=== PATIENT | male | born 1950 | race Caucasian/White ===

== ENCOUNTER 2016-06-04 20:30 | Emergency (ER) | payer OTHER ==
--- NOTE | 2016-06-04 23:42 | DIAGNOSTIC IMAGING REPORT ---
PROCEDURE: US ABDOMEN ULTRASOUND-LIMITED INDICATION: EPIGASTRIC ABDO PAIN, initial encounter TECHNIQUE: Morales scale and color Doppler sonographic images of the abdomen were obtained. COMPARISON: None. FINDINGS: Study limited by patient's body habitus. Liver measures 17 cm with diffuse increased echogenicity. Left lobe of the liver not well visualized. Pancreas normal as visualized. Normal gallbladder and CBD (3.7 mm). IVC is patent. Normal hepatopetal flow. Normal right kidney measures 11.1 cm. IMPRESSION: 1. Hepatic steatosis versus intrinsic liver disease
--- NOTE | 2016-06-05 00:13 | DIAGNOSTIC IMAGING REPORT ---
PROCEDURE: CT ABD/PELVIS WITH CONTRAST CLINICAL INDICATION: Upper abdominal pain, initial encounter. TECHNIQUE: 125 ml of Isovue 300 were injected intravenously and axial images were obtained of the entire abdomen and pelvis with sagittal and coronal reformations. COMPARISON: Abdominal ultrasound 06/04/2016. FINDINGS: ABDOMEN: Small lingular infiltrate suggestive of pneumonia. Mild right basilar dependent atelectasis. Borderline cardiomegaly. 1.5 cm left hepatic lobe cyst. Prominent gallbladder but no evidence of gallstones. Pancreas, spleen, adrenal glands and right kidney are normal. 1.8 cm left renal cyst. Minor atherosclerosis. Mild descending colon diverticulosis. Nonspecific bowel gas pattern. PELVIS: Normal appendix. Mild sigmoid diverticulosis. Enlarged prostate (5.2 cm). Normal bladder. No pelvic mass, inflammatory changes or free fluid. Moderate degenerative changes of the spine. IMPRESSION: 1. Small lingular infiltrate suggestive of pneumonia 2. Hepatic cyst 3. Prominent gallbladder but no evidence of gallstones, inflammatory changes or biliary obstruction 4. Diverticulosis 5. Results discussed with Dr. Small All CT scans at this facility use dose modulation, iterative reconstruction, and/or weight-based dosing when appropriate to reduce radiation dose to as low as reasonably achievable.
--- NOTE | 2016-06-05 00:53 | ED CLINICAL REPORT ---
Clinical Report - Physicians/Mid Levels [facility] [address] [place] [address] 06/04/2016 20:32 Patient: ANANTH CARLIN Time Seen: 2100; initial patient contact. Arrived- By private vehicle. Historian- patient. HISTORY OF PRESENT ILLNESS Chief Complaint: points to epigstric area and states he has chest pain. This started today and is still present. It was abrupt in onset and has been constant but is not gone now. At its maximum, severity described as moderate. When seen in the E.D., severity described as moderate. Modifying factors- (but possibly worsens with food). Not worsened by anything. Not relieved by anything. It is described as "pain" and it is described as located in the epigastric area and radiating (back). The patient has had nausea. No loss of appetite, vomiting or diarrhea. No recent travel. Similar symptoms previously: None. Recent medical care: Not recently seen/assessed. REVIEW OF SYSTEMS No constipation, black stools, hematemesis, bloody stools or skin rash. All systems otherwise negative, except as recorded above. PAST HISTORY See nurses notes. SOCIAL HISTORY Never smoker. No alcohol use or drug use. No recent travel. Is a local resident. FAMILY HISTORY Negative. (no early family history of heart disease). ADDITIONAL NOTES The nursing notes have been reviewed. PHYSICAL EXAM Vital Signs: 06/04/2016 20:34 BP: 155/90. HR: 63. RR: 20. O2 saturation: 98%. Pain level now: 8/10. Oxygen saturation normal. Appearance: Alert. Oriented X3. No acute distress. Eyes: Pupils equal, round and reactive to light. Eyes normal inspection. No scleral icterus. ENT: Ears normal. Nose normal. Pharynx normal. Neck: Normal inspection. Neck supple. No JVD. CVS: Normal heart rate and rhythm. Heart sounds normal. Pulses normal. Respiratory: No respiratory distress. Breath sounds normal. Chest nontender. No rales, rhonchi or wheezes. Abdomen: Soft. Mild tenderness in the epigastric area. No guarding, rebound tenderness or Mendoza's, obturator or psoas sign present. Bowel sounds normal. No organomegaly. No mass. Back: Normal inspection. No CVA tenderness. Skin: Skin warm and dry. Normal skin color. No rash. Normal skin turgor. Extremities: Extremities exhibit normal ROM. No lower extremity edema. LABS, X-RAYS, AND EKG EKG: No acute ischemia. Normal EKG. Normal sinus rhythm. Normal P waves. Normal LORETA. Normal QRS complex. Normal axis. Normal ST and T waves, QT and QTc. Abdominal CT: PROCEDURE: CT ABD/PELVIS WITH CONTRAST CLINICAL INDICATION: Upper abdominal pain, initial encounter. TECHNIQUE: 125 ml of Isovue 300 were injected intravenously and axial images were obtained of the entire abdomen and pelvis with sagittal and coronal reformations. COMPARISON: Abdominal ultrasound 06/04/2016. FINDINGS: ABDOMEN: Small lingular infiltrate suggestive of pneumonia. Mild right basilar dependent atelectasis. Borderline cardiomegaly. 1.5 cm left hepatic lobe cyst. Prominent gallbladder but no evidence of gallstones. Pancreas, spleen, adrenal glands and right kidney are normal. 1.8 cm left renal cyst. Minor atherosclerosis. Mild descending colon diverticulosis. Nonspecific bowel gas pattern. PELVIS: Normal appendix. Mild sigmoid diverticulosis. Enlarged prostate (5.2 cm). Normal bladder. No pelvic mass, inflammatory changes or free fluid. Moderate degenerative changes of the spine. IMPRESSION: 1. Small lingular infiltrate suggestive of pneumonia 2. Hepatic cyst 3. Prominent gallbladder but no evidence of gallstones, inflammatory changes or biliary obstruction 4. Diverticulosis. Study type: abdomen and pelvis. Abdominal CT performed with IV contrast. The study was independently viewed by me and interpreted by the radiologist. The study was discussed with the radiologist (via pacs and phone). Abdominal Sonogram: (PROCEDURE: US ABDOMEN ULTRASOUND-LIMITED INDICATION: EPIGASTRIC ABDO PAIN, initial encounter TECHNIQUE: Morales scale and color Doppler sonographic images of the abdomen were obtained. COMPARISON: None. FINDINGS: Study limited by patient's body habitus. Liver measures 17 cm with diffuse increased echogenicity. Left lobe of the liver not well visualized. Pancreas normal as visualized. Normal gallbladder and CBD (3.7 mm). IVC is patent. Normal hepatopetal flow. Normal right kidney measures 11.1 cm. IMPRESSION: 1. Hepatic steatosis versus intrinsic liver disease). The study was independently viewed by me and interpreted by the radiologist. The study was discussed with the radiologist (via pacs and phone). Laboratory Tests: UA-Culture if indicated: (DELIA: 06/05/2016 00:01) ( MsgRcvd 06/05/2016 00:31) Final results Test Result Flag Units (Reference) URINE COLOR YELLOW URINE APPEARANCE CLEAR URINE GLUCOSE NEGATIVE (NEGATIVE) URINE BILIRUBIN NEGATIVE (NEGATIVE) URINE KETONE NEGATIVE (NEGATIVE) URINE SPECIFIC GRAVITY 1.015 (1.010-1.030) URINE PH 6.0 (5.0-8.0) URINE PROTEIN NEGATIVE (NEGATIVE) URINE UROBILINOGEN 0.2 EU/dL (0.2-1.0) URINE NITRITE NEGATIVE (NEGATIVE) URINE BLOOD 1+ (NEGATIVE) URINE LEUK ESTERASE NEGATIVE (NEGATIVE) URINE RBC 1-3 rbc/hpf (0-1) URINE WBC RARE wbc/hpf (0-1) URINE EPITHELIAL CELLS NONE SEEN EPI/hpf (0-5) URINE BACTERIA NONE SEEN (NONE SEEN) URINE COMMENT CULT NOT INDICATED URINE CULTURES ARE SET-UP BASED ON THE FOLLOWING CRITERIA:POSITIVE NITRITEPOSITIVE LEUKOCYTE ESTERASEGREATER THAN 10 WHITE BLOOD CELLSMODERATE (2+) OR GREATER BACTERIA CBC w Diff: (DELIA: 06/04/2016 20:40) ( MsgRcvd 06/04/2016 21:12) Final results Test Result Flag Units (Reference) WHITE BLOOD COUNT 7.7 K/uL (4.5-11.5) RED BLOOD COUNT 4.98 M/uL (4.50-5.90) HEMOGLOBIN 15.9 gm/dL (13.5-17.5) HEMATOCRIT 46.4 % (41.0-53.0) MEAN CELL VOLUME 93 fL (80-100) MEAN CORPUSCULAR HGB 32 pg (26-34) MEAN CORPUSCULAR HGB CONC 34 g/dL (31-37) RED CELL DISTRIBUTION WIDTH 13.5 % (11.6-14.8) PLATELET COUNT 243 K/uL (150-400) NEUTROPHIL % 64.5 % (50-75) LYMPH % 24.8 L % (25-40) MONO % 8.3 % (3-14) EOSINOPHIL % 1.6 % (0-4) BASOPHIL % 0.8 % (0-2) Troponin-I: (DELIA: 06/04/2016 23:23) ( MsgRcvd 06/04/2016 23:56) Final results Test Result Flag Units (Reference) TROPONIN I <0.05 ng/mL (0.00-1.5) TROPONIN REFERENCE RANGE:<0.1 NEGATIVE0.1-1.5 INDETERMINANT>1.5 POSITIVE CHEM 13 PANEL: (DELIA: 06/04/2016 20:40) ( MsgRcvd 06/04/2016 21:14) Final results Test Result Flag Units (Reference) GLUCOSE 107 mg/dL (70-110) BUN 20 H mg/dL (7-18) CREATININE 1.1 mg/dL (0.6-1.3) Estimated GFR >60 mL/min Estimated GFR- >60 mL/min Note: Persistent reduction over 3 months in eGFR<60 mL/min/1.73 m2 defines CKD. Patients with eGFR values>=60 mL/min/1.73 m2 may also have CKD if evidence ofpersistent proteinuria. Additional information may be foundat www.kidney.org. SODIUM 143 mmol/L (136-145) POTASSIUM 3.5 mmol/L (3.5-5.1) CHLORIDE 104 mmol/L (98-107) CARBON DIOXIDE 28 mmol/L (21-32) CALCIUM 9.1 mg/dL (8.5-10.1) TOTAL PROTEIN 8.1 g/dL (6.4-8.2) ALBUMIN 4.3 g/dL (3.3-5.0) BILIRUBIN, TOTAL 0.5 mg/dL (0.0-1.0) ALKALINE PHOSPHATASE 93 U/L (46-116) AST (SGOT) 16 U/L (15-37) ALT (SGPT) 32 U/L (12-78) CPK 96 U/L (24-260) MAGNESIUM 2.3 mg/dL (1.8-2.4) LIPASE 178 U/L (73-393) AMYLASE 58 U/L (25-115) TROPONIN I <0.05 ng/mL (0.00-1.5) TROPONIN REFERENCE RANGE:<0.1 NEGATIVE0.1-1.5 INDETERMINANT>1.5 POSITIVE . PROGRESS AND PROCEDURES Course of Care: the patient is a pleasant 65-year-old male presenting for evaluation of epigastric abdominal pain. When asked where the patient's pain is, patient points to the epigastric area but states that he has chest pain. Patient is also tender in the epigastric region with palpation. We'll clinical suspicion for cardiac etiology of the patient's symptoms here today. Patient will be however evaluated for atypical presentation of acute myocardial infarction. EKG is been ordered. It has been reviewed by me. No acute findings noted. Patient is agreeable to treatment plan. Medications for nausea and pain at been ordered. Patient appears nontoxic and is in no acute distress. Vital signs are noted to be unremarkable. Initial troponin is noted to be negative. Patient will require 2 troponins as the patient had onset of symptomsless than 8 hours prior to arrival in the emergency department. Patient continues to be nontoxic and in no acute distress. Patient's pain is improved while here in the emergency department. Patient's ultrasound is noted to be negative. No acute findings noted. Patient reports still having pain. Because the patient's symptoms and radiation of his pain to the back, would be concern foraortic aneurysm. Patient is agreeable to treatment plan. We'll evaluate patient is CT scan of the abdomen with contrast. Patient's CT scan does not show any acute Abnormalities either. While patient has been here his pain is significantly improved. Had long discussion with patient in regards to chest pain and abdominal pain as well as causes for these things. Do not feel patient needs be admitted to the hospital given the second troponin is also noted to be negative and lack of findings on his workup here in the emergency department today. Patient has negative CT scan, ultrasound, and laboratory studies including urinalysis. Patient is resting in bed and in no acute distress and nontoxic. Discussed with patient his workup, diagnosis, home care, follow-up, and return precautions. All questions have been answered. The patient expressed understanding of these instructions and was agreeable to them. Disposition: Discharged. Condition: good. CLINICAL IMPRESSION Acute epigastric abdominal pain. 06/05/2016 00:46 BP: 134/75. HR: 60. RR: 20. O2 saturation: 96%. Pain level now: 5/10. Blood pressure normal. Oxygen saturation normal. Bacterial pneumonia. Empiric antibiotics given in the ED. (acute lingular). INSTRUCTIONS Warnings: GENERAL WARNINGS: Return or contact your physician immediately if your condition worsens or changes unexpectedly, if not improving as expected, or if other problems arise. SPECIFICALLY, return if you develop pain, fever, vomiting, the inability to keep fluids down, blood in vomitus, blood in diarrhea, fainting or lightheadedness. Prescription Medications: Zithromax Z-Ovidio: Take according to package instructions. No refills. Substitution is permissible. Phenergan 25 mg tablets: every 8 hours as needed for nausea or vomiting. Dispense twenty (20). No refill. Substitution is permissible Percocet 5 mg/325 mg: take 1 tablet orally every 6 hours as needed for pain. Dispense twelve (12). No refill. Substitution is permissible. Follow-up: Return to the emergency department as needed. Follow up with your doctor in three days. Reason for referral: recheck today's concerns. Summary of care provided to patient via paper. Screening today revealed the patient's blood pressure to be in the normal range. The patient should follow up with a primary care provider for blood pressure management. Understanding of the discharge instructions verbalized by patient. Discharge instructions reviewed (). (Electronically signed by Gopi Small Dr. 06/08/2016 10:24)
--- NOTE | 2016-06-05 00:53 | ED ORDER SUMMARY ---
..... Patient: AANNTH CARLIN OrderSheet [facility] VisitID: [id number] [place] [address] 65y, M Registration Date/Time: 06/04/2016 ORDER SHEET Weight: 102.0 kg (stated) Allergies: Cipro GENERAL ORDERS: Promotions Executive Producer (Continuous) (chest pain ) (20:41 06/04/2016 HSoule per protocol) (20:42 HSoule) Cardiac Panel Stat (20:42 06/04/2016 HSoule per protocol) (Ack 20:42 HSoule) (21:00 TLewis R.N.) Amylase Urgent (20:42 06/04/2016 HSoule per protocol) (Ack 20:42 HSoule) (21:00 TLewis R.N.) (Cancelled: Duplicate Order21:08 Ronny Navas) Lipase Urgent (20:42 06/04/2016 HSoule per protocol) (Ack 20:42 HSoule) (21:00 TLewis R.N.) CBC w Diff Urgent (20:42 06/04/2016 HSoule per protocol) (Ack 20:42 HSoule) (20:42 HSoule) (Cancelled: Duplicate Order21:08 Ronny Navas) CMP Urgent (20:42 06/04/2016 HSoule per protocol) (Ack 20:42 HSoule) (21:00 TLewis R.N.) (Cancelled: Duplicate Order21:Jace [address] EKG - ER Stat (20:42 06/04/2016 HSoule per protocol) (20:42 HSoule) Oxygen (2 L/min) (NC) (20:42 06/04/2016 HSoule per protocol) (20:42 HSoule) Pulse oximeter (20:42 06/04/2016 HSoule per protocol) (20:42 HSoule) US Abdomen Limited (No) Urgent (21:18 06/04/2016 Ronny Navas) (Ack 21:20 ALawrence ER Tech1) (23:18 TLewis R.N.) CT Abd/Pel w Cont (No) (N/A) Urgent (22:49 06/04/2016 Ronny Navas) (Ack 22:57 ALawrence ER Tech1) (23:18 TLewis R.N.) Troponin-I Urgent (23:08 06/04/2016 Ronny Navas) (Ack 23:12 ALawrence ER Tech1) (23:18 TLewis R.N.) UA-Culture if indicated Urgent (00:13 06/05/2016 Ronny Navas) (Ack 0:13 HSoule) (0:33 ALawrence ER Tech1) MEDICATION ORDERS: Phenergan IV 25 mg (HIGH ALERT MEDICATION, NOW) (21:09 06/04/2016 Ronny Navas) (Ack 21:10 HSoule) (21:28 HSoule) IV FLUIDS: IV Saline Lock (20:42 06/04/2016 HSoule per protocol) (Ack 21:10 HSoule) Zofran IV 4 mg (NOW) (20:42 06/04/2016 HSoule per protocol) (Ack 20:43 HSoule) (20:45 HSoule) Morphine IV 4 mg (HIGH ALERT MEDICATION, NOW) (21:19 06/04/2016 Ronny Navas) (Ack 21:24 SRedmond) (21:28 HSoule) Dilaudid IV 1 mg (once now. repeat in 15 minutes for pain > 5/10) (21:53 06/04/2016 Ronny Navas) (21:55 HSoule) ORDER SHEET NOTES: [Electronically signed by Saba Carreno (05:55 06/05/2016)] [Electronically signed by Gopi Small Dr. (10:24 06/08/2016)] [Electronically locked/signed by Saba Carreno (05:55 06/05/2016)]
--- NOTE | 2016-06-05 00:53 | ED ORDER SUMMARY ---
..... Patient: ANANTH CARLIN OrderSheet [facility] VisitID: [id number] [place] [address] 65y, M Registration Date/Time: 06/04/2016 ORDER SHEET Weight: 102.0 kg (stated) Allergies: Cipro GENERAL ORDERS: Pig Sticker (Continuous) (chest pain ) (20:41 06/04/2016 HSoule per protocol) (20:42 HSoule) Cardiac Panel Stat (20:42 06/04/2016 HSoule per protocol) (Ack 20:42 HSoule) (21:00 TLewis R.N.) Amylase Urgent (20:42 06/04/2016 HSoule per protocol) (Ack 20:42 HSoule) (21:00 TLewis R.N.) (Cancelled: Duplicate Order21:08 Ronny Navas) Lipase Urgent (20:42 06/04/2016 HSoule per protocol) (Ack 20:42 HSoule) (21:00 TLewis R.N.) CBC w Diff Urgent (20:42 06/04/2016 HSoule per protocol) (Ack 20:42 HSoule) (20:42 HSoule) (Cancelled: Duplicate Order21:08 Ronny Navas) CMP Urgent (20:42 06/04/2016 HSoule per protocol) (Ack 20:42 HSoule) (21:00 TLewis R.N.) (Cancelled: Duplicate Order21:Jace [address] Dr[address] EKG - ER Stat (20:42 06/04/2016 HSoule per protocol) (20:42 HSoule) Oxygen (2 L/min) (NC) (20:42 06/04/2016 HSoule per protocol) (20:42 HSoule) Pulse oximeter (20:42 06/04/2016 HSoule per protocol) (20:42 HSoule) US Abdomen Limited (No) Urgent (21:18 06/04/2016 Ronny Navas) (Ack 21:20 ALawrence ER Tech1) (23:18 TLewis R.N.) CT Abd/Pel w Cont (No) (N/A) Urgent (22:49 06/04/2016 Ronny Navas) (Ack 22:57 ALawrence ER Tech1) (23:18 TLewis R.N.) Troponin-I Urgent (23:08 06/04/2016 Ronny Navas) (Ack 23:12 ALawrence ER Tech1) (23:18 TLewis R.N.) UA-Culture if indicated Urgent (00:13 06/05/2016 Ronny Navas) (Ack 0:13 HSoule) (0:33 ALawrence ER Tech1) MEDICATION ORDERS: Phenergan IV 25 mg (HIGH ALERT MEDICATION, NOW) (21:09 06/04/2016 Ronny Navas) (Ack 21:10 HSoule) (21:28 HSoule) IV FLUIDS: IV Saline Lock (20:42 06/04/2016 HSoule per protocol) (Ack 21:10 HSoule) Zofran IV 4 mg (NOW) (20:42 06/04/2016 HSoule per protocol) (Ack 20:43 HSoule) (20:45 HSoule) Morphine IV 4 mg (HIGH ALERT MEDICATION, NOW) (21:19 06/04/2016 Ronny Navas) (Ack 21:24 SRedmond) (21:28 HSoule) Dilaudid IV 1 mg (once now. repeat in 15 minutes for pain > 5/10) (21:53 06/04/2016 Ronny Navas) (21:55 HSoule) ORDER SHEET NOTES: [Electronically signed by Saba Carreno (05:55 06/05/2016)] [Electronically signed by Gopi Small Dr. (10:24 06/08/2016)] [Electronically locked/signed by Saba Carreno (05:55 06/05/2016)]
--- NOTE | 2016-06-05 00:53 | ED NURSING NOTES ---
Clinical Report - Nurses [facility] [address] [place] [address] 06/04/2016 20:32 [id number] TRI[facility] Triage time 20:34 Jun 04 2016. Acuity: LEVEL 3. Chief Complaint: CHEST PAIN and UPPER ABDOMINAL PAIN. 20:37 06/04/16. SEPSIS SCREEN: Sepsis Screen: negative. Negative (no infection suspected/documented). JOY COMA SCORE: [place] Coma Scale: 15- eyes open spontaneously (4); best verbal response- oriented x 4 (5); best motor response- obeys commands (6). --20:37 Saba Carreno 20:34 06/04/16. BP: 155/90. HR: 63. RR: 20. O2 saturation: 98%. Pain level now: 8/10. --20:37 Saba Carreno. Weight: 102 kg stated. Height/Length: 71 inches Per Patient. BMI: 31.4. --20:37 Saba Carreno. Medications Diltiazem HCl Oral. --20:35 Saba Carreno Levothyroxine Sodium Oral. --20:35 Saba Carreno HCTZ. --20:35 Saba Carreno Flecainide Acetate Oral. --20:35 Sbaa Carreno Eliquis Oral. --20:41 Saba Carreno. Medication/allergy information source: the patient. --20:37 Saba Carreno. Allergies Cipro. --20:36 Saba Carreno. History Arrived by private vehicle. Historian: patient. Accompanied by family. Primary physician (kyler montemayor , architectural wood model maker dr delgado at [facility]). ( Patient reports chest and abdominal pain that started about 3 pm. He is vomiting. He reports some shortness of breath.). PAST MEDICAL HX: Immunizations: up-to-date. SOCIAL HX: Never smoker. No alcohol use or drug use. No infectious disease exposure. ABUSE ASSESSMENT: No report of abuse. FALL RISK ASSESSMENT: Fall risk assessment completed. No fall risk identified. NUTRITIONAL RISK ASSESSMENT: The nutritional risk assessment revealed no deficiencies. FUNCTIONAL ASSESSMENT: Functional assessment: no impairments noted. LEARNING NEEDS ASSESSMENT: The learning needs assessment revealed no barriers. SKIN INTEGRITY ASSESSMENT: Skin integrity risk assessment completed. No skin integrity risk identified. --20:37 Saba Carreno. PROBLEMS: Atrial Fibrillation. Corneal Foreign Body. Corneal Abrasion. Immunizations. Thyroid Disease. --20:36 Saba Carreno. ADDITIONAL SURGERIES: Elbow. Hernia Repair. Knee Surgery. Shoulder Surgery. Sinus Surgery. Vasectomy. --20:36 Saba Carreno. Interventions ID band on patient. To treatment room. --20:37 Saba Carreno. PHYSICAL ASSESSMENT Ambulatory to room. Patient gowned. GENERAL / NEURO / PSYCH: Alert. Oriented X 4. Appears in pain and in distress. HEENT: Mucous membranes are pink. RESPIRATORY: Respirations not labored. CVS: Pulses within normal limits. GI / : Abdomen soft. Abdominal tenderness in the epigastric area and left upper quadrant. EXTREMITIES: No lower extremity edema. SKIN: Skin is warm and dry. Skin is non-tender. --20:38 Saba Carreno. NURSING PROGRESS NOTES Oxygen administered by nasal cannula at 2 liters. quality assurance monitor, pulse oximeter and NIBP monitor placed on patient; monitor alarms on. Patient gowned. Reassurance given to the patient. Two patient identifiers checked. Call light placed in reach. Side rails up x 1. Bed placed in lowest position. Brakes of bed on. Patient ready for evaluation- chart flagged. --20:39 Saba Carreno 20:39 06/04/2016 Site #1 started via IV in the right hand with an 20g angiocath, with aseptic technique and good blood return; one attempt. Blood drawn: rainbow set. Labeled in the presence of the patient and sent to the lab. Saline lock flushed with 10 mL saline. --20:39 Saba Carreno EKG time: (20:45 Jun 04 2016). EKG was performed by a tech and shown to the ED physician. --20:45 Saba Carreno 20:45 06/04/2016 Zofran (Ondansetron HCl) IVP 4 mg given over 1 minute(s) via site #1. Allergies verified and confirmed 5 rights. IV patency established. IV site checked: no pain, redness, or swelling. IV flushed thoroughly pre- and post-medication administration. IVP given by RN. --20:45 Saba Carreno 21:28 06/04/2016 PHENERGAN (Promethazine HCl) IVP 25 mg given diluted in NS 20mL over 2 minute(s) via site #1. Allergies verified and confirmed 5 rights. IV patency established. IV site checked: no pain, redness, or swelling. IV flushed thoroughly pre- and post-medication administration. IVP given by RN. --21:28 Saba Carreno 21:28 06/04/2016 Morphine IVP 4 mg given over 1 minute(s) via site #1. Allergies verified, confirmed 5 rights and sedative warning given to the patient and patient's family. IV patency established. IV site checked: no pain, redness, or swelling. IV flushed thoroughly pre- and post-medication administration. IVP given by RN. --21:28 Saba Carreno 21:47 06/04/16. BP: 133/57. HR: 66. RR: 17. O2 saturation: 96% on room air. Pain level now: 10/29. --21:47 Saba Carreno 21:55 06/04/2016 Dilaudid (HYDROmorphone HCl PF) IVP 1 mg given over 1 minute(s) via site #1. Allergies verified, confirmed 5 rights and sedative warning given to the patient and patient's family. IV patency established. IV site checked: no pain, redness, or swelling. IV flushed thoroughly pre- and post-medication administration. IVP given by RN. --21:55 Saba Carreno ( Patient vomiting and still in pain, provider notified. See CPOE for new orders). --21:56 Saba Carreno 21:55 06/04/16. BP: 125/74. HR: 63. RR: 20. O2 saturation: 97% on room air. Pain level now: 10. --21:56 Saba Carreno Reassessment after medication administered. Overall patient status- he states feels the same. --22:16 Saba Carreno ( US at the bedside). --22:25 Brooklyn Sousa R.N. ( Ultrasound at bedside). --22:28 Rome Carrenonah 22:41 06/04/16. BP: 131/85. HR: 58. O2 saturation: 98% on nasal cannula at 2 liters/minute. --22:42 WaiRome khannah Patient ID band checked for patient name and birthdate: patient confirmed. Blood samples drawn by tech ; labeled in presence of the patient and sent to lab: cardiac enzymes (2nd set). --23:25 Rome Carrenonah 00:01 06/05/16. BP: 130/66. HR: 60. RR: 18. O2 saturation: 95% on nasal cannula at 2 liters/minute. Temp: 98 F (oral). Pain level now: 07/29. --00:02 Rome Carrenonah 00:46 06/05/16. BP: 134/75. HR: 60. RR: 20. O2 saturation: 96% on nasal cannula at 2 liters/minute. Pain level now: 07/29. --00:46 Saba Carreno. DISPOSITION / DISCHARGE 01:00 06/05/16. Condition at departure: improved and stable. The goals identified in the patient's plan of care were met. No learning barriers present. Discharge instructions provided and reviewed with the patient and spouse. Reviewed warnings (Do not drive while on sedative medications). Reviewed medication(s) side effects, precautions, dosing and course information. Prescription(s) given to the patient. Reviewed need for increased fluid intake. Patient and spouse verbalized understanding. Written instructions provided in Frisian. ( Increase fluids and fibers to prevent constipation from narcotic pain medications. Follow up with your PCP in three days. Take probiotic while on antibiotic.). The patient was discharged by the physician. He was discharged home and accompanied by spouse. He left the Emergency Department ambulatory and via private vehicle. Spouse driving. FALL RISK ASSESSMENT: Fall risk assessment completed. No fall risk identified. --05:54 Rome Carrenonah 01:00 06/05/16. BP: 134/70. HR: 68. RR: 18. O2 saturation: 97% on room air. Temp: 98 F (oral). Pain level now: 06/29. --05:54 Saba Carreno 01:00 06/05/2016 Site #1 removed upon discharge. Catheter intact. Bandaid applied. --05:54 Saba Carreno. Locked/Released at 06/05/2016 5:55 by Saba Carreno,
--- NOTE | 2016-06-05 00:53 | ED NURSING NOTES ---
Clinical Report - Nurses [facility] [address] [place] [address] 06/04/2016 20:32 [id number] Triage time 20:34 Jun 04 2016. Acuity: LEVEL 3. Chief Complaint: CHEST PAIN and UPPER ABDOMINAL PAIN. 20:37 06/04/16. SEPSIS SCREEN: Sepsis Screen: negative. Negative (no infection suspected/documented). JOY COMA SCORE: [place] Coma Scale: 15- eyes open spontaneously (4); best verbal response- oriented x 4 (5); best motor response- obeys commands (6). --20:37 Saba Carreno 20:34 06/04/16. BP: 155/90. HR: 63. RR: 20. O2 saturation: 98%. Pain level now: 8/10. --20:37 Saba Carreno. Weight: 102 kg stated. Height/Length: 71 inches Per Patient. BMI: 31.4. --20:37 Saba Carreno. Medications Diltiazem HCl Oral. --20:35 Saba Carreno Levothyroxine Sodium Oral. --20:35 Saba Carreno HCTZ. --20:35 Saba Carreno Flecainide Acetate Oral. --20:35 Saba Carreno Eliquis Oral. --20:41 Saba Carreno. Medication/allergy information source: the patient. --20:37 Saba Carreno. Allergies Cipro. --20:36 Saba Carreno. History Arrived by private vehicle. Historian: patient. Accompanied by family. Primary physician (kyler montemayor , hospital manager dr delgado at [facility]). ( Patient reports chest and abdominal pain that started about 3 pm. He is vomiting. He reports some shortness of breath.). PAST MEDICAL HX: Immunizations: up-to-date. SOCIAL HX: Never smoker. No alcohol use or drug use. No infectious disease exposure. ABUSE ASSESSMENT: No report of abuse. FALL RISK ASSESSMENT: Fall risk assessment completed. No fall risk identified. NUTRITIONAL RISK ASSESSMENT: The nutritional risk assessment revealed no deficiencies. FUNCTIONAL ASSESSMENT: Functional assessment: no impairments noted. LEARNING NEEDS ASSESSMENT: The learning needs assessment revealed no barriers. SKIN INTEGRITY ASSESSMENT: Skin integrity risk assessment completed. No skin integrity risk identified. --20:37 Saba Carreno. PROBLEMS: Atrial Fibrillation. Corneal Foreign Body. Corneal Abrasion. Immunizations. Thyroid Disease. --20:36 Saba Carreno. ADDITIONAL SURGERIES: Elbow. Hernia Repair. Knee Surgery. Shoulder Surgery. Sinus Surgery. Vasectomy. --20:36 Saba Carreno. Interventions ID band on patient. To treatment room. --20:37 Saba Carreno. PHYSICAL ASSESSMENT Ambulatory to room. Patient gowned. GENERAL / NEURO / PSYCH: Alert. Oriented X 4. Appears in pain and in distress. HEENT: Mucous membranes are pink. RESPIRATORY: Respirations not labored. CVS: Pulses within normal limits. GI / : Abdomen soft. Abdominal tenderness in the epigastric area and left upper quadrant. EXTREMITIES: No lower extremity edema. SKIN: Skin is warm and dry. Skin is non-tender. --20:38 Saba Carreno. NURSING PROGRESS NOTES Oxygen administered by nasal cannula at 2 liters. nuclear monitoring technician, pulse oximeter and NIBP monitor placed on patient; monitor alarms on. Patient gowned. Reassurance given to the patient. Two patient identifiers checked. Call light placed in reach. Side rails up x 1. Bed placed in lowest position. Brakes of bed on. Patient ready for evaluation- chart flagged. --20:39 Saba Carreno 20:39 06/04/2016 Site #1 started via IV in the right hand with an 20g angiocath, with aseptic technique and good blood return; one attempt. Blood drawn: rainbow set. Labeled in the presence of the patient and sent to the lab. Saline lock flushed with 10 mL saline. --20:39 Saba Carreno EKG time: (20:45 Jun 04 2016). EKG was performed by a tech and shown to the ED physician. --20:45 Saba Carreno 20:45 06/04/2016 Zofran (Ondansetron HCl) IVP 4 mg given over 1 minute(s) via site #1. Allergies verified and confirmed 5 rights. IV patency established. IV site checked: no pain, redness, or swelling. IV flushed thoroughly pre- and post-medication administration. IVP given by RN. --20:45 Saba Carreno 21:28 06/04/2016 PHENERGAN (Promethazine HCl) IVP 25 mg given diluted in NS 20mL over 2 minute(s) via site #1. Allergies verified and confirmed 5 rights. IV patency established. IV site checked: no pain, redness, or swelling. IV flushed thoroughly pre- and post-medication administration. IVP given by RN. --21:28 Saba Carreno 21:28 06/04/2016 Morphine IVP 4 mg given over 1 minute(s) via site #1. Allergies verified, confirmed 5 rights and sedative warning given to the patient and patient's family. IV patency established. IV site checked: no pain, redness, or swelling. IV flushed thoroughly pre- and post-medication administration. IVP given by RN. --21:28 Saba Carreno 21:47 06/04/16. BP: 133/57. HR: 66. RR: 17. O2 saturation: 96% on room air. Pain level now: 10/29. --21:47 Saba Carreno 21:55 06/04/2016 Dilaudid (HYDROmorphone HCl PF) IVP 1 mg given over 1 minute(s) via site #1. Allergies verified, confirmed 5 rights and sedative warning given to the patient and patient's family. IV patency established. IV site checked: no pain, redness, or swelling. IV flushed thoroughly pre- and post-medication administration. IVP given by RN. --21:55 Saba Carreno ( Patient vomiting and still in pain, provider notified. See CPOE for new orders). --21:56 Saba Carreno 21:55 06/04/16. BP: 125/74. HR: 63. RR: 20. O2 saturation: 97% on room air. Pain level now: 10. --21:56 Saba Carreno Reassessment after medication administered. Overall patient status- he states feels the same. --22:16 Saba Carreno ( US at the bedside). --22:25 Brooklyn Sousa R.N. ( Ultrasound at bedside). --22:28 Rome Carrenonah 22:41 06/04/16. BP: 131/85. HR: 58. O2 saturation: 98% on nasal cannula at 2 liters/minute. --22:42 WaiRome khannah Patient ID band checked for patient name and birthdate: patient confirmed. Blood samples drawn by tech ; labeled in presence of the patient and sent to lab: cardiac enzymes (2nd set). --23:25 Rome Carrenonah 00:01 06/05/16. BP: 130/66. HR: 60. RR: 18. O2 saturation: 95% on nasal cannula at 2 liters/minute. Temp: 98 F (oral). Pain level now: 07/29. --00:02 Rome Carrenonah 00:46 06/05/16. BP: 134/75. HR: 60. RR: 20. O2 saturation: 96% on nasal cannula at 2 liters/minute. Pain level now: 07/29. --00:46 Saba Carreno. DISPOSITION / DISCHARGE 01:00 06/05/16. Condition at departure: improved and stable. The goals identified in the patient's plan of care were met. No learning barriers present. Discharge instructions provided and reviewed with the patient and spouse. Reviewed warnings (Do not drive while on sedative medications). Reviewed medication(s) side effects, precautions, dosing and course information. Prescription(s) given to the patient. Reviewed need for increased fluid intake. Patient and spouse verbalized understanding. Written instructions provided in Icelandic. ( Increase fluids and fibers to prevent constipation from narcotic pain medications. Follow up with your PCP in three days. Take probiotic while on antibiotic.). The patient was discharged by the physician. He was discharged home and accompanied by spouse. He left the Emergency Department ambulatory and via private vehicle. Spouse driving. FALL RISK ASSESSMENT: Fall risk assessment completed. No fall risk identified. --05:54 Rome Carrenonah 01:00 06/05/16. BP: 134/70. HR: 68. RR: 18. O2 saturation: 97% on room air. Temp: 98 F (oral). Pain level now: 06/29. --05:54 Saba Carreno 01:00 06/05/2016 Site #1 removed upon discharge. Catheter intact. Bandaid applied. --05:54 Saba Carreno. Locked/Released at 06/05/2016 5:55 by Saba Carreno,
--- NOTE | 2016-06-08 10:24 | ED MAR SUMMARY ---
..... Medication Administration [facility] [address] [place] [address] Patient: ANANTH CARLIN Visit ID: [id number] 65y, M Weight: 102.0 kg Height/Length: 71 in BMI: 31.4 ALLERGIES: Cipro Given 20:45 06/04/2016 Saba Carreno, Medication Administered: ZOFRAN [IVP] (ONDANSETRON HCL), Dose: 4 mg IVP over 1 minute(s), Site: #1 right hand. Medication Ordered: Zofran IV 4 mg (NOW). Given :06/04/2016 Saba Carreno, Medication Administered: PHENERGAN [IVP] (PROMETHAZINE HCL), Dose: 25 mg IVP over 2 minute(s), In: NS 20 mL, Site: #1 right hand. Medication Ordered: Phenergan IV 25 mg (HIGH ALERT MEDICATION, NOW). Given :06/04/2016 Saba Carreno, Medication Administered: MORPHINE [IVP], Dose: 4 mg IVP over 1 minute(s), Site: #1 right hand. Medication Ordered: Morphine IV 4 mg (HIGH ALERT MEDICATION, NOW). Given 21:06/04/2016 Saba Carreno, Medication Administered: DILAUDID [IVP] (HYDROMORPHONE HCL PF), Dose: 1 mg IVP over 1 minute(s), Site: #1 right hand. Medication Ordered: Dilaudid IV 1 mg (once now. repeat in 15 minutes for pain > 5/10).
--- NOTE | 2016-06-08 10:24 | ED DISCHARGE INSTRUCTIONS ---
Patient: ANANTH CARLIN General Instructions VisitID: [id number] [place] [address] 65y, M Registration Date/Time: 06/04/2016 Acute epigastric abdominal pain. 06/05/2016 00:46 BP: 134/75. HR: 60. RR: 20. O2 saturation: 96%. Pain level now: 5/10. Blood pressure normal. Oxygen saturation normal. Bacterial pneumonia. Empiric antibiotics given in the ED. (acute lingular). INSTRUCTIONS Warnings: GENERAL WARNINGS: Return or contact your physician immediately if your condition worsens or changes unexpectedly, if not improving as expected, or if other problems arise. SPECIFICALLY, return if you develop pain, fever, vomiting, the inability to keep fluids down, blood in vomitus, blood in diarrhea, fainting or lightheadedness. Prescription Medications: Zithromax Z-Ovidio: Take according to package instructions. No refills. Substitution is permissible. Phenergan 25 mg tablets: every 8 hours as needed for nausea or vomiting. Dispense twenty (20). No refill. Substitution is permissible Percocet 5 mg/325 mg: take 1 tablet orally every 6 hours as needed for pain. Dispense twelve (12). No refill. Substitution is permissible. Follow-up: Return to the emergency department as needed. Follow up with your doctor in three days. Reason for referral: recheck today's concerns. Summary of care provided to patient via paper. Screening today revealed the patient's blood pressure to be in the normal range. The patient should follow up with a primary care provider for blood pressure management. Understanding of the discharge instructions verbalized by patient. Discharge instructions reviewed (). ADDITIONAL INFORMATION Abdominal Pain,Uncertain Cause [Male] Based on your visit today, the exact cause of your abdominalpain is not clear. Your exam and tests do not indicate a dangerous cause at this time. However, the signs of a serious problem may take more time to appear. Although your evaluation was reassuring today, sometimes early in the course of many conditions, exam and lab tests can appear normal. Therefore, it is important for you to watch for any new symptoms or worsening of your condition. Causes It may not be obvious what caused your symptoms. Pay attention to things that do seem to make your symptoms worse or better and discuss this with your doctor when you follow up. Diagnosis The evaluation of abdominal pain in the emergency department may onlyrequire an exam by the doctor or it may include blood, urine or imaging studies, depending on many factors. Sometimes exams and tests can identify a cause but in many cases, a clear cause is not found. Further testing at follow up visits may help to suggest a clear diagnosis. Home Care Rest as much as possible until your next exam. Try to avoid any medications (unless otherwise directed by your doctor), foods, activities, or other factors that you may have contributed to your symptoms. Try to eat foods that you know that you have tolerated well in the past. Certain diets may be recommended for some conditions that cause abdominal pain. However, since the cause of your symptoms may not be clear, discuss your diet more with your primary care provider or specialist for further recommendations. Eating several small meals per day as opposed to 2 or 3 larger meals may help. Monitor closely for anything that may make your symptoms worse or better. Pay close attention to symptoms below that may indicate worsening of your condition. Follow Up and Precautions See your doctoras instructed or sooneror if your symptoms are not improving.In some cases, you may need more testing. When to Seek Medical Attention Contact your doctor or see medical attention ifany of the following occur: Pain is becoming worse You are unable to take your medications due to excessive vomiting Swelling of the abdomen Fever of 100.4F (38C) or higher, or as directed by your health care provider Blood in vomit or bowel movements (dark red or black color) Jaundice (yellow color of eyes and skin) New onset of weakness, dizziness or fainting New onset of chest, arm, back, neck or jaw pain Pneumonia (Adult) Pneumonia is an infection deep within the lung, in the small air sacs (alveoli). It may be due to a virus or bacteria and is usually treated with an antibiotic. Severe cases require treatment in the hospital. Milder cases can be treated at home. Symptoms usually start to improve during the first2 days of treatment. Home Care: Rest at home for the first 23 days or until you feel stronger. When resuming activity, dont let yourself become overly tired. Avoid exposure to cigarette smoke (yours or others). You may use acetaminophen (Tylenol) or ibuprofen (Motrin, Advil) to control fever or pain, unless another medicine was prescribed. [NOTE: If you have chronic liver or kidney disease or ever had a stomach ulcer or GI bleeding, talk with your doctor before using these medicines.] (Aspirin should never be used in anyone under 18 years of age who is ill with a fever. It may cause severe liver damage.) Your appetite may be poor so a light diet is fine. Keep well hydrated by drinking 68 glasses of fluids per day (water, sport drinks such as Gatorade, sodas without caffeine, juices, tea, soup, etc.). This will help loosen secretions in the lung, making it easier for you to cough up the phlegm (sputum). If you also have heart or kidney disease, check with your doctor before you drink extra amounts of fluids. Finish all antibiotic medicine prescribed, even if you are feeling better after a few days. Follow Up with your doctor in the next 23 days (or as advised) to be sure you are responding properly to the medicine. [NOTE: If you are age 65 or older, or if you have chronic lung disease (asthma, emphysema or COPD), we recommendthe pneumococcal vaccination and a yearlyinfluenzavaccination(flu-shot) every . Ask your doctor about this.] Get Prompt Medical Attention if any of the following occur: Not getting better within the first 48 hours of treatment Increasing shortness of breath or rapid breathing (over 25 breaths/minute) Coughing up blood or increasing chest pain with breathing Fever of 100.4F (38C) oral or higher, not better with fever medication Increasing weakness, dizziness or fainting Increasing thirst or dry mouth Sinus pain, headache or a stiff neck Chest pain not caused by coughing Azithromycin Oral tablet What is this medicine? AZITHROMYCIN (az ith shirley MYE sin) is a macrolide antibiotic. It is used to treat or prevent certain kinds of bacterial infections. It will not work for colds, flu, or other viral infections. How should I use this medicine? Take this medicine by mouth with a full glass of water. Follow the directions on the prescription label. The tablets can be taken with food or on an empty stomach. If the medicine upsets your stomach, take it with food. Take your medicine at regular intervals. Do not take your medicine more often than directed. Take all of your medicine as directed even if you think your are better. Do not skip doses or stop your medicine early. Talk to your dobby looms pegger regarding the use of this medicine in children. Special care may be needed. What side effects may I notice from receiving this medicine? Side effects that you should report to your doctor or health healthcare sales representative as soon as possible: allergic reactions like skin rash, itching or hives, swelling of the face, lips, or tongue confusion, nightmares or hallucinations dark urine difficulty breathing hearing loss irregular heartbeat or chest pain pain or difficulty passing urine redness, blistering, peeling or loosening of the skin, including inside the mouth white patches or sores in the mouth yellowing of the eyes or skin Side effects that usually do not require medical attention (report to your doctor or health healthcare sales representative if they continue or are bothersome): diarrhea dizziness, drowsiness headache stomach upset or vomiting tooth discoloration vaginal irritation What may interact with this medicine? Do not take this medicine with any of the following medications: lincomycin This medicine may also interact with the following medications: amiodarone antacids cyclosporine digoxin magnesium nelfinavir phenytoin warfarin What if I miss a dose? If you miss a dose, take it as soon as you can. If it is almost time for your next dose, take only that dose. Do not take double or extra doses. Where should I keep my medicine? Keep out of the reach of children. Store at room temperature between 15 and 30 degrees C (59 and 86 degrees F). Throw away any unused medicine after the expiration date. What should I tell my health care provider before I take this medicine? They need to know if you have any of these conditions: kidney disease liver disease irregular heartbeat or heart disease an unusual or allergic reaction to azithromycin, erythromycin, other macrolide antibiotics, foods, dyes, or preservatives or trying to get breast-feeding What should I watch for while using this medicine? Tell your doctor or health healthcare sales representative if your symptoms do not improve. Do not treat diarrhea with over the counter products. Contact your doctor if you have diarrhea that lasts more than 2 days or if it is severe and watery. This medicine can make you more sensitive to the sun. Keep out of the sun. If you cannot avoid being in the sun, wear protective clothing and use sunscreen. Do not use sun lamps or tanning beds/booths. Promethazine Hydrochloride Oral tablet What is this medicine? PROMETHAZINE (proe METH a zeen) is an antihistamine. It is used to treat allergic reactions and to treat or prevent nausea and vomiting from illness or motion sickness. It is also used to make you sleep before surgery, and to help treat pain or nausea after surgery. How should I use this medicine? Take this medicine by mouth with a glass of water. Follow the directions on the prescription label. Take your doses at regular intervals. Do not take your medicine more often than directed. Talk to your dobby looms pegger regarding the use of this medicine in children. Special care may be needed. This medicine should not be given to infants and children younger than 2 years old. What side effects may I notice from receiving this medicine? Side effects that you should report to your doctor or health healthcare sales representative as soon as possible: blurred vision irregular heartbeat, palpitations or chest pain muscle or facial twitches pain or difficulty passing urine seizures skin rash slowed or shallow breathing unusual bleeding or bruising yellowing of the eyes or skin Side effects that usually do not require medical attention (report to your doctor or health healthcare sales representative if they continue or are bothersome): headache nightmares, agitation, nervousness, excitability, not able to sleep (these are more likely in children) stuffy nose What may interact with this medicine? Do not take this medicine with any of the following medications: medicines called MAO Inhibitors like Nardil, Parnate, Marplan, Eldepryl other phenothiazines like trimethobenzamide This medicine may also interact with the following medications: barbiturates like phenobarbital bromocriptine certain antidepressants certain antihistamines used in allergy or cold medicines epinephrine levodopa medicines for sleep medicines for mental problems and psychotic disturbances medicines for movement abnormalities as in Parkinson's disease, or for gastrointestinal problems muscle relaxants prescription pain medicines What if I miss a dose? If you miss a dose, take it as soon as you can. If it is almost time for your next dose, take only that dose. Do not take double or extra doses. Where should I keep my medicine? Keep out of the reach of children. Store at room temperature, between 20 and 25 degrees C (68 and 77 degrees F). Protect from light. Throw away any unused medicine after the expiration date. What should I tell my health care provider before I take this medicine? They need to know if you have any of these conditions: glaucoma high blood pressure or heart disease kidney disease liver disease lung or breathing disease, like asthma prostate trouble pain or difficulty passing urine seizures an unusual or allergic reaction to promethazine or phenothiazines, other medicines, foods, dyes, or preservatives or trying to get breast-feeding What should I watch for while using this medicine? Tell your doctor or health healthcare sales representative if your symptoms do not start to get better in 1 to 2 days. You may get drowsy or dizzy. Do not drive, use machinery, or do anything that needs mental alertness until you know how this medicine affects you. To reduce the risk of dizzy or fainting spells, do not stand or sit up quickly, especially if you are an older patient. Alcohol may increase dizziness and drowsiness. Avoid alcoholic drinks. Your mouth may get dry. Chewing sugarless gum or sucking hard candy, and drinking plenty of water may help. Contact your doctor if the problem does not go away or is severe. This medicine may cause dry eyes and blurred vision. If you wear contact lenses you may feel some discomfort. Lubricating drops may help. See your eye doctor if the problem does not go away or is severe. This medicine can make you more sensitive to the sun. Keep out of the sun. If you cannot avoid being in the sun, wear protective clothing and use sunscreen. Do not use sun lamps or tanning beds/booths. If you are diabetic, check your blood-sugar levels regularly. Oxycodone Hydrochloride, Acetaminophen Oral tablet What is this medicine? ACETAMINOPHEN; OXYCODONE (a set a IZABELLA irvin fen; ox i KOE done) is a pain reliever. It is used to treat mild to moderate pain. How should I use this medicine? Take this medicine by mouth with a full glass of water. Follow the directions on the prescription label. Take your medicine at regular intervals. Do not take your medicine more often than directed. Talk to your dobby looms pegger regarding the use of this medicine in children. Special care may be needed. Patients over 65 years old may have a stronger reaction and need a smaller dose. What side effects may I notice from receiving this medicine? Side effects that you should report to your doctor or health healthcare sales representative as soon as possible: allergic reactions like skin rash, itching or hives, swelling of the face, lips, or tongue breathing difficulties, wheezing confusion light headedness or fainting spells severe stomach pain yellowing of the skin or the whites of the eyes Side effects that usually do not require medical attention (report to your doctor or health healthcare sales representative if they continue or are bothersome): dizziness drowsiness nausea vomiting What may interact with this medicine? alcohol antihistamines barbiturates like amobarbital, butalbital, butabarbital, methohexital, pentobarbital, phenobarbital, thiopental, and secobarbital benztropine drugs for bladder problems like solifenacin, trospium, oxybutynin, tolterodine, hyoscyamine, and methscopolamine drugs for breathing problems like ipratropium and tiotropium drugs for certain stomach or intestine problems like propantheline, homatropine methylbromide, glycopyrrolate, atropine, belladonna, and dicyclomine general anesthetics like etomidate, ketamine, nitrous oxide, propofol, desflurane, enflurane, halothane, isoflurane, and sevoflurane medicines for depression, anxiety, or psychotic disturbances medicines for sleep muscle relaxants naltrexone narcotic medicines (opiates) for pain phenothiazines like perphenazine, thioridazine, chlorpromazine, mesoridazine, fluphenazine, prochlorperazine, promazine, and trifluoperazine scopolamine tramadol trihexyphenidyl What if I miss a dose? If you miss a dose, take it as soon as you can. If it is almost time for your next dose, take only that dose. Do not take double or extra doses. Where should I keep my medicine? Keep out of the reach of children. This medicine can be abused. Keep your medicine in a safe place to protect it from theft. Do not share this medicine with anyone. Selling or giving away this medicine is dangerous and against the law. Store at room temperature between 20 and 25 degrees C (68 and 77 degrees F). Keep container tightly closed. Protect from light. This medicine may cause accidental overdose and if it is taken by other adults, children, or pets. Flush any unused medicine down the toilet to reduce the chance of harm. Do not use the medicine after the expiration date. What should I tell my health care provider before I take this medicine? They need to know if you have any of these conditions: brain tumor Crohn's disease, inflammatory bowel disease, or ulcerative colitis drink more than 3 alcohol containing drinks per day drug abuse or addiction head injury heart or circulation problems kidney disease or problems going to the bathroom liver disease lung disease, asthma, or breathing problems an unusual or allergic reaction to acetaminophen, oxycodone, other opioid analgesics, other medicines, foods, dyes, or preservatives or trying to get breast-feeding What should I watch for while using this medicine? Tell your doctor or health healthcare sales representative if your pain does not go away, if it gets worse, or if you have new or a different type of pain. You may develop tolerance to the medicine. Tolerance means that you will need a higher dose of the medication for pain relief. Tolerance is normal and is expected if you take this medicine for a long time. Do not suddenly stop taking your medicine because you may develop a severe reaction. Your body becomes used to the medicine. This does NOT mean you are addicted. Addiction is a behavior related to getting and using a drug for a non-medical reason. If you have pain, you have a medical reason to take pain medicine. Your doctor will tell you how much medicine to take. If your doctor wants you to stop the medicine, the dose will be slowly lowered over time to avoid any side effects. You may get drowsy or dizzy. Do not drive, use machinery, or do anything that needs mental alertness until you know how this medicine affects you. Do not stand or sit up quickly, especially if you are an older patient. This reduces the risk of dizzy or fainting spells. Alcohol may interfere with the effect of this medicine. Avoid alcoholic drinks. There are different types of narcotic medicines (opiates) for pain. If you take more than one type at the same time, you may have more side effects. Give your health care provider a list of all medicines you use. Your doctor will tell you how much medicine to take. Do not take more medicine than directed. Call emergency for help if you have problems breathing. The medicine will cause constipation. Try to have a bowel movement at least every 2 to 3 days. If you do not have a bowel movement for 3 days, call your doctor or health healthcare sales representative. Do not take Tylenol (acetaminophen) or medicines that have acetaminophen with this medicine. Too much acetaminophen can be very dangerous. Many nonprescription medicines contain acetaminophen. Always read the labels carefully to avoid taking more acetaminophen. You have been given the following additional information: Abdominal Pain, Unknown Cause, (Male) Pneumonia (Adult) Azithromycin Oral tablet Promethazine Hydrochloride Oral tablet Oxycodone Hydrochloride, Acetaminophen Oral tablet (Electronically signed by Gopi Small Dr. 06/08/2016 10:24)
--- NOTE | 2016-06-08 10:24 | ED MED RECONCILIATION SUMMARY ---
Patient: ANANTH CARLIN Medication Reconciliation Report [facility] VisitID: [id number] [address] [place] [address] 65y, M Registration Date/Time: 06/04/2016 Weight: 102.0 kg Height/Length: 71 in. BMI: 31.4 ALLERGIES: Cipro The patient's Home Medications are listed below: THE FOLLOWING MEDICATIONS NEED TO BE RECONCILED: Diltiazem HCl Oral Eliquis Oral Flecainide Acetate Oral HCTZ Levothyroxine Sodium Oral The source(s) of the original Home Medication information: patient The following Medications were given to the patient in the Emergency Department: Zofran [IVP] IVP 4 mg, administered: 06/04/2016 8:45:00 PM PHENERGAN [IVP] IVP 25 mg diluted in NS 20 mL, administered: 06/04/2016 9:28:00 PM Morphine [IVP] IVP 4 mg, administered: 06/04/2016 9:28:00 PM Dilaudid [IVP] IVP 1 mg, administered: 06/04/2016 9:55:00 PM The following Medications were prescribed to the patient: Zithromax Z-Ovidio: Take according to package instructions. No refills. Substitution is permissible. -- Gopi Small Dr. Phenergan 25 mg tablets: every 8 hours as needed for nausea or vomiting. Dispense twenty (20). No refill. Substitution is permissible -- Gopi Small Dr. Percocet 5 mg/325 mg: take 1 tablet orally every 6 hours as needed for pain. Dispense twelve (12). No refill. Substitution is permissible. -- Gopi Small Dr.
--- NOTE | 2016-06-08 10:24 | ED MAR SUMMARY ---
..... Medication Administration Record [facility] [address] [place] [address] Patient: ANANTH CARLIN Visit ID: [id number] 65y, M Weight: 102.0 kg Height/Length: 71 in BMI: 31.4 ALLERGIES: Cipro Given 20:45 06/04/2016 Saba Carreno, Medication Administered: ZOFRAN [IVP] (ONDANSETRON HCL), Dose: 4 mg IVP over 1 minute(s), Site: #1 right hand. Medication Ordered: Zofran IV 4 mg (NOW). Given :06/04/2016 Saba Carreno, Medication Administered: PHENERGAN [IVP] (PROMETHAZINE HCL), Dose: 25 mg IVP over 2 minute(s), In: NS 20 mL, Site: #1 right hand. Medication Ordered: Phenergan IV 25 mg (HIGH ALERT MEDICATION, NOW). Given :06/04/2016 Saba Carreno, Medication Administered: MORPHINE [IVP], Dose: 4 mg IVP over 1 minute(s), Site: #1 right hand. Medication Ordered: Morphine IV 4 mg (HIGH ALERT MEDICATION, NOW). Given 21:06/04/2016 Saba Carreno, Medication Administered: DILAUDID [IVP] (HYDROMORPHONE HCL PF), Dose: 1 mg IVP over 1 minute(s), Site: #1 right hand. Medication Ordered: Dilaudid IV 1 mg (once now. repeat in 15 minutes for pain > 5/10).
--- NOTE | 2016-06-08 10:24 | ED MED RECONCILIATION SUMMARY ---
Patient: ANANTH CARLIN Medication Reconciliation Report [facility] VisitID: [id number] [address] [place] [address] 65y, M Registration Date/Time: 06/04/2016 Weight: 102.0 kg Height/Length: 71 in. BMI: 31.4 ALLERGIES: Cipro The patient's Home Medications are listed below: THE FOLLOWING MEDICATIONS NEED TO BE RECONCILED: Diltiazem HCl Oral Eliquis Oral Flecainide Acetate Oral HCTZ Levothyroxine Sodium Oral The source(s) of the original Home Medication information: patient The following Medications were given to the patient in the Emergency Department: Zofran [IVP] IVP 4 mg, administered: 06/04/2016 8:45:00 PM PHENERGAN [IVP] IVP 25 mg diluted in NS 20 mL, administered: 06/04/2016 9:28:00 PM Morphine [IVP] IVP 4 mg, administered: 06/04/2016 9:28:00 PM Dilaudid [IVP] IVP 1 mg, administered: 06/04/2016 9:55:00 PM The following Medications were prescribed to the patient: Zithromax Z-Ovidio: Take according to package instructions. No refills. Substitution is permissible. -- Gopi Small Dr. Phenergan 25 mg tablets: every 8 hours as needed for nausea or vomiting. Dispense twenty (20). No refill. Substitution is permissible -- Gopi Small Dr. Percocet 5 mg/325 mg: take 1 tablet orally every 6 hours as needed for pain. Dispense twelve (12). No refill. Substitution is permissible. -- Gopi Small Dr.
== END 2016-06-05 01:00 | disposition home or self-care (01) ==
LOC: ED SRH 20:30
DX: J15.9 Unspecified bacterial pneumonia (principal); R10.13 Epigastric pain; R07.9 Chest pain, unspecified
CPT/HCPCS: 90004; 90100; 90616; 92235; 92530; 92610; 92720; 95059